=== PATIENT | female | born 1960 | race Caucasian/White ===

== ENCOUNTER → 2019-12-22 09:58 | Outpatient (CLI) | payer OTHER, SELFPAY ==
--- NOTE | ~2019-12-22 | MR_ITS ---
EXAMINATION: MR shoulder RT w con DATE: 12/22/2019 11:38 INDICATION: Right shoulder pain and popping following swimming injury 6 months prior. TECHNIQUE: Magnetic resonance imaging (MRI) of the right shoulder was performed following intra-yris cular gadolinium contrast injection and without intravenous contrast. Details of the glenohumeral rebecca nt injection have been dictated separately. Sequences included axial T2-weighted FS FSE, axial T1-we ighted FS FSE, coronal oblique T1-weighted FS FSE, coronal oblique T2-weighted FSE, sagittal T2-weigh althea FS FSE, sagittal T1-weighted FSE, and ABER (abduction external rotation) T1-weighted FS FSE. COMPARISON: None. FINDINGS: Coracoacromial arch: The acromial undersurface is mildly curved with the acromion appearing thin particularly anteriorly l ikely related to prior acromioplasty. There is also been resection of the distal clavicle with wideni ng of the acromioclavicular joint. No evident thickening of the coracoacromial ligament. Rotator cuff: Suture anchors at the superior facet of the greater tuberosity likely related to prior rotator cuff r epair. There is intrasubstance contrast imbibition surrounding taut intact appearing tendon fibers in the distal 1.5 cm of the supraspinatus tendon but no evident extension of contrast into the subacrom ial/subdeltoid bursa to suggest full-thickness tear. Contrast imbibition can be present within a func tionally intact repaired rotator cuff tear. No discrete bursal sided tear defect identified or torn a nd retracted portion of the tendon. Mild tendinopathy without discrete tear in the anterior supraspin atus tendon. The teres minor and subscapularis tendons are normal. Normal rotator cuff muscle bulk an d signal. Biceps tendon, glenoid labrum and glenohumeral cartilage: Long head of the biceps tendon is intact. Contrast signal demonstrates an irregular articular surface along the 11:30-12:30 position of the superior glenoid labrum consistent with shallow fissuring. The remainder of the labrum as well as the glenohumeral cartilage appears normal. Bones and other: Normal marrow signal with no edema, fracture or abnormal marrow replacing process. There is metallic magnetic field artifact associated with an anchor screw along the greater tuberosity. IMPRESSION: 1. Intrasubstance contrast imbibition in the distal supraspinatus tendon likely related to chronic te ar and subsequent repair. This can be a normal residual finding of a functionally intact repaired tea r. No full-thickness perforation or evident discontinuous or retracted torn tendon fibers edified. 2. Shallow fissuring along the articular surface of the superior glenoid labrum. Reviewed, dictated and finalized at location A. ICAL MEDICINE SPECIALIST IMPRESSION: 1. Intrasubstance contrast imbibition in the distal supraspinatus tendon likely related to chronic tear and subsequent repair. This can be a normal residual f inding of a functionally intact repaired tear. No full-thickness perforation or evident discontinuous or retracted torn tendon fibers edified. 2. Shallow fissuring along the articular surface of the superior glenoid labrum .
--- NOTE | ~2019-12-22 | XR_ITS ---
XR fl inj shoulder RT - MR/CT DATE: 12/22/2019 11:05 INDICATION: Glenohumeral intra-articular joint injection for MRI shoulder examination TECHNIQUE: The purpose of the procedure, technique and potential complications were explained to the patient. The patient verbalized understanding and gave consent. The skin of the anterior aspect of the right shoulder was prepared with sterile solution. Sterile charanjit pe was applied. 1% lidocaine local anesthetic was a foam machine operator to the skin and underlying subcutaneous tissues. A 20-gauge spinal needle was introduced into the glenohumeral joint space under fluoroscopic guidance. 12 cc of contrast material containing gadolinium and Omnipaque 240 was injected, with conf irmation of intra-articular position of the contrast material by fluoroscopy. A single spot AP exposu re of the shoulder was obtained to document the intra-articular injection. The patient was very cooperative and tolerated the procedure well, without complaint. IMPRESSION: Uneventful fluoroscopically guided intra-articular injection of 12 cc of contrast materia l containing gadolinium and Omnipaque 240 at the glenohumeral joint Reviewed, dictated and finalized at Location [facility]. Reviewed, dictated and finalized at location B. ICAL CODER IMPRESSION: Uneventful fluoroscopically guided intra-articular injection of 12 cc of contrast material containing gadolinium and Omnipaque 240 at the glenohum eral joint
== END ==
DX: S43.431D Superior glenoid labrum lesion of right shoulder, subsequent encounter (principal)
CPT/HCPCS: 23350; 73222; 77002; A9577; Q9966

== ENCOUNTER → 2020-12-04 10:02 | Outpatient (CLI) | payer OTHER, SELFPAY ==
--- NOTE | ~2020-12-04 | MR_ITS ---
EXAMINATION: MR lumbar spine wo con EXAM DATE: 12/04/2020 10:52 INDICATION: Pain, radiculopathy, sciatica low back pain . TECHNIQUE: Multi-sequential, multiplanar MR images of the lumbar spine were obtained without contrast . Sagittal T1, T2, T2 fat saturation images. Axial T2 weighted images. Comparison is made to prior examination from 10/01/2006. FINDINGS: There is moderate loss L5-S1 disc height with endplate degenerative signal change. There is mild loss of the L3-4 disc height with 2 mm anterolisthesis.. The vertebral bodies are otherwise ali gned. The conus medullaris terminates at the L1 level and has normal signal intensity and morphology. Paraspinal soft tissue is unremarkable. Level by level evaluation: T12-L1: Disc does not extend beyond the endplate margin. Facet arthropathy: Mild. Neural foraminal stenosis: No stenosis. Central canal stenosis: No stenosis. L1-L2: Disc does not extend beyond the endplate margin. Facet arthropathy: Mild. Neural foraminal stenosis: No stenosis. Central canal stenosis: No stenosis. L2-L3: Disc does not extend beyond the endplate margin. Facet arthropathy: Mild. Neural foraminal stenosis: No stenosis. Central canal stenosis: No stenosis. L3-L4: There is a mild to moderate diffuse disc bulge. Facet arthropathy: Mild to moderate. Neural foraminal stenosis: Mild right. Central canal stenosis: Mild. L4-L5: There is a mild diffuse disc bulge. Facet arthropathy: Mild. Neural foraminal stenosis: Mild left. Central canal stenosis: Mild. L5-S1: There is a mild to moderate diffuse disc bulge. Facet arthropathy: Mild. Neural foraminal stenosis: Mild bilateral. Central canal stenosis: No stenosis. There was only minimal spondylosis in 2005. IMPRESSION: L5-S1 moderate disc disease, otherwise relatively mild lumbar spondylosis. Reviewed, dictated and finalized at location A. L HAZMAT DRIVER IMPRESSION: L5-S1 moderate disc disease, otherwise relatively mild lumbar spond ylosis.
== END ==
PROVIDERS: Visit Provider Podiatrist Foot & Ankle Surgery
DX: M47.27 Other spondylosis with radiculopathy, lumbosacral region (principal); M48.07 Spinal stenosis, lumbosacral region
CPT/HCPCS: 72148

== ENCOUNTER 2023-07-02 01:52 | Day surgery (SDC) | payer BC, SELFPAY ==
[2023-06-29 15:04] VITALS: BMI 20.6
--- NOTE | 2023-07-01 17:21 | PM.HPGS ---
History of Present Illness History of Present Illness Consent: Risks, benefits, and alternatives have been discussed and questions answered. Patient agrees to proceed with procedure. Chief complaint: neoplasm screening Narrative: Mini Garcia is a 63 year old female referred for colon cancer screening. Her last examination was 12 years ago colon was unremarkable. Review of Systems Review of Systems: All systems reviewed & are unremarkable except as noted in HPI and below PMFSH Surgical History Surgical History H/O breast implant H/O prior ablation treatment History of delivery History of cholecystectomy History of elbow surgery History of shoulder surgery History of tonsillectomy Hx of LASIK Family History Family History Father Family history of cardiovascular disease, Onset Age: 85 Mother Family history of cardiovascular disease, Onset Age: 80 Family history of malignant neoplasm of breast in first degree relative, Onset Age: 80 Other Family history of malignant neoplasm of breast Social History Social History Smoking status: Never smoker Alcohol intake: current Drinks per week: 12 Alcohol use details: WEEKEND/BEERS Substance use: never Substance use type: does not use Living arrangements: with family Spiritual care concerns: No Meds Home Medications and Allergies Home Medications Medication Instructions Recorded Confirmed Type levothyroxine 137 mcg tablet 137 mcg PO DAILY #90 tabs 03/16/23 06/29/23 Rx ascorbic acid (vitamin C) 500 mg 500 mg PO DAILY 06/29/23 06/29/23 History tablet atorvastatin 10 mg tablet 10 mg PO HS 06/29/23 06/29/23 History ibuprofen 200 mg tablet (Advil) 800 mg PO QAM 06/29/23 06/29/23 History Allergies Allergy/AdvReac Type Severity Reaction Status Date / Time No Known Allergies Allergy Verified 07/02/23 07:20 Exam Resp: Auscultation: clear to auscultation bilaterally Cardio: Rate: regular rate Rhythm: regular rhythm GI: GI Palp: Yes Soft to palpation and No Tenderness to palpation present (GI) Assessment and Plan Assessment and plan (1) Colon cancer screening: Code(s): Z12.11 - Encounter for screening for malignant neoplasm of colon Status: Acute Assessment and Plan: Colonoscopy with possible biopsy or polypectomy or cautery or injection of substances.
[2023-07-02 07:21] VITALS: BP 133/76; PULSE 70; RESP 18; TEMP 36.2; O2SAT 100
[2023-07-02] MEDS: LACTATED RINGERS 1,000 ML 150 ML IV CONT (07:36)
--- NOTE | 2023-07-02 08:14 | WPDANESEPPF ---
Anes - Initial Pre Proc Eval Procedure: Operation Date: 07/02/23 08:30 Proposed Procedures p Screening Colonoscopy - Sumit Thomason MD Date/Time: 07/02/23 08:14 Surgeon: Sumit Thomason MD Pre Op Diagnosis: neoplasm screening Patient Data Age: 63 Gender: F Height: 1.63 m Weight: 58 kg Last Vital Signs Temp 97.2 F L 07/02/23 07:21 Pulse 70 07/02/23 07:21 Resp 18 07/02/23 07:21 BP 133/76 07/02/23 07:21 Pulse Ox 100 07/02/23 07:21 O2 Del Method Room Air 07/02/23 07:21 Allergies Allergy/AdvReac Type Severity Reaction Status Date / Time No Known Allergies Allergy Verified 07/02/23 07:20 Home Medications Medication Instructions Recorded Confirmed Type levothyroxine 137 mcg tablet 137 mcg PO DAILY #90 tabs 03/16/23 06/29/23 Rx ascorbic acid (vitamin C) 500 mg 500 mg PO DAILY 06/29/23 06/29/23 History tablet atorvastatin 10 mg tablet 10 mg PO HS 06/29/23 06/29/23 History ibuprofen 200 mg tablet (Advil) 800 mg PO QAM 06/29/23 06/29/23 History Patient hx anesthesia problems: none Family hx anesthesia problems: none Results Review: All pre-operative results and documents have been reviewed as part of the pre-operative evaluation. [facility], [facility] Surgical History Surgical History H/O breast implant H/O prior ablation treatment History of delivery History of cholecystectomy History of elbow surgery History of shoulder surgery History of tonsillectomy Hx of LASIK Family History Family History Father Family history of cardiovascular disease, Onset Age: 85 Mother Family history of cardiovascular disease, Onset Age: 80 Family history of malignant neoplasm of breast in first degree relative, Onset Age: 80 Other Family history of malignant neoplasm of breast Social History Social History Smoking status: Never smoker Alcohol intake: current Drinks per week: 12 Alcohol use details: WEEKEND/BEERS Substance use: never Substance use type: does not use Living arrangements: with family Spiritual care concerns: No Anes - Eval Final PreProcedure Day of Procedure 07/02/23 08:14 Patient weight: normal Heart: regular rate and rhythm Lungs: clear to auscultation Airway: Mallampati scale class II Neurological: alert and oriented Last oral intake: >/= 8 hours ASA classification: II Emergent: no Anesthetic plan: proceed Anesthesia type and monitoring: general GIVS and standard monitoring Results Review: All pre-operative results and documents have been reviewed as part of the pre-operative evaluation. Informed Consent: The patient's anesthetic plan and its attendant risks and benefits were discussed with the patient/family/POA. Questions were solicited and answers provided to the satisfaction of the patient/family/POA.
[2023-07-02] MEDS: SIMETHICONE ORAL SUSPENSION 20 MG/0.3 ML 30 ML BOTTLE 0.6 ML IRRIGATION (08:22)
[2023-07-02 08:29] VITALS: BP 113/62; PULSE 72; RESP 22; O2SAT 100
[2023-07-02 08:39] VITALS: BP 121/66; PULSE 70; RESP 18; O2SAT 100
[2023-07-02 08:49] VITALS: BP 121/69; PULSE 64; RESP 18; O2SAT 100
== END 2023-07-02 08:57 | disposition home or self-care (01) ==
PROVIDERS: PCP Family Medicine; Visit Provider Internal Medicine Gastroenterology
PROC: 0DJD8ZZ Inspection of Lower Intestinal Tract, Via Natural or Artificial Opening Endoscopic (ICD-10-PCS; CPT 45378; principal; 2023-07-02 08:30)
DX: Z12.11 Encounter for screening for malignant neoplasm of colon (principal); K57.30 Diverticulosis of large intestine without perforation or abscess without bleeding
CPT/HCPCS: 45378; J2704; J7120

== ENCOUNTER → 2023-09-09 12:14 | Outpatient (CLI) | payer BC, SELFPAY ==
--- NOTE | ~2023-09-09 | MM_ITS ---
EXAMINATION: MM scrn miko implant BI w holli HISTORY: Screening mammogram TECHNIQUE: Craniocaudal and mediolateral oblique 3-D tomosynthesis images with implant displacement a nd synthetic 2-D images were generated. Craniocaudal and mediolateral oblique views of the breasts wi thout implant displacement were obtained using full field digital mammography. CAD analysis was submi tted and interpreted. COMPARISON: 11/18/2019 bilateral implant screening mammogram BREAST PARENCHYMAL COMPOSITION: There are scattered areas of fibroglandular density. FINDINGS: Status post bilateral augmentation mammoplasty. There is no evidence of suspicious mass, ca lcification, or architectural distortion to suggest malignancy in either breast. There has been no jin spicious interval change. IMPRESSION: 1. No mammographic evidence of malignancy. 2. Recommend routine screening mammography in one year. BI-RADS Category 1: Negative Reviewed, dictated and finalized at location A.
--- NOTE | ~2023-09-09 | DEXA_ITS ---
Bone Density Report Name: CELIA FERRARA Age: 63 Sex: Female Ethnicity: White Date of : 1960 Indication: osteopenia; postmenopausal Referring Provider: ROSALVA CABAN Study: Bone densitometry was performed. Exam Date: September 09, 2023 Accession number: [id number] Bone Density: Region BMD T-score Z-score Classification AP Spine (L1-L4) 0.887 -1.5 0.1 Osteopenia Femoral Neck (Left) 0.588 -2.4 -1.0 Osteopenia Total Hip (Left) 0.699 -2.0 -0.9 Osteopenia Femoral Neck (Right) 0.633 -1.9 -0.6 Osteopenia Total Hip (Right) 0.696 -2.0 -0.9 Osteopenia Total Hip Mean 0.698 -2.0 -0.9 Osteopenia World Health Organization criteria for BMD impression classify patients as: Normal (T-score at or above -1.0), Osteopenia (T-score between -1.0 and -2.5), or Osteoporosis (T-score at or below -2.5). 10-year Fracture Risk(1): Major Osteoporotic Fracture 11% Hip Fracture 1.8% Reported Risk Factors: [place] (), Neck BMD=0.588, BMI=23.3 (1) FRAX(R) Version 3.08. Fracture probability calculated for an untreated patient. Fracture probability may be lower if the patient has received treatment. Previous Exams: Region Exam Age BMD T-score BMD Change BMD Change Date g/cm2 vs Baseline vs Previous AP Spine(L1-L4) 09/09/2023 63 0.887 -1.5 -0.021 -0.021 11/01/2019 59 0.908 -1.3 Total Hip(Left) 09/09/2023 63 0.699 -2.0 -0.028* -0.028* 11/01/2019 59 0.727 -1.8 Total Hip(Right) 09/09/2023 63 0.696 -2.0 -0.015 -0.015 11/01/2019 59 0.711 -1.9 *Denotes significance at 95% confidence level, LSC for AP Spine = 0.022 g/cm2, LSC for Total Hip = 0.027 g/cm2 Clinical Information Provided by Patient: Has used the following medications: Vitamin D Patient maximum height was 64 Menopause Age: 51 No regular weight bearing exercise Does not regularly consume dairy products Drinks caffeinated beverages Onset of menses at age 14 Number of children 2 Impression: The patient has low bone mass, based on the Left Femoral Neck T-score. The patient has an estimated ten-year risk of hip fracture of 1.8% and an estimated ten-year risk of major fracture of 11%, based on the WHO FRAX algorithm. The BMD for the Total Hip(Left) decreased, changing by -0.028 since the last DXA exam. Discussion: BONE DENSITY IS LOW AT ONE OR MORE SKELETAL SITES. This patient's lowest T-score is low at one or more skeletal
== END ==
PROVIDERS: PCP Family Medicine; Visit Provider Family Medicine
DX: Z12.31 Encounter for screening mammogram for malignant neoplasm of breast (principal); M85.88 Other specified disorders of bone density and structure, other site
CPT/HCPCS: 77063; 77067; 77080